=== PATIENT | male | born 1960 | race Caucasian/White ===

== ENCOUNTER 2017-05-20 16:30 | Outpatient (RCR) | payer OTHER, SELFPAY ==
--- NOTE | 2016-11-07 17:17 | HP.PTEVAL_ITS ---
Patient's Visit Information KEREN CRAWFORD is a 55 year old M referred to Physical Therapy by Out of Town Doctor CHANO HOLGUIN with a diagnosis of LUMBAR SPINE TUMOR. Date of Evaluation: 11/07/16 Physical Therapist: Yi Rogers - Visit Plan Frequency: 3x /Week Duration: 4-6 Weeks Plan: *S/P 2ND SPINE TUMOR OCTOBER 30 2016* *NO BENDING, LIFTING (> 5-10 LBS) , TWISTING. POSTURE CORRECTION/STRENGTHENING, INSTRUCTION IN APPROPRIATE BODY MECHANICS AND ACTIVITY MODIFICATIONS. DLS STARTING WITH A NEUTRAL SPINE PROGRESSING ROM OK'D BY SURGEON. BELA LE ROM, STRETCHING AND STRENGTHENING. HEP INSTRUCTION. - Subjective Subjective: PATIENT REPORTS HAVING BACK SURGERY OCTOBER 30 2016 TO REMOVE A SPINAL TUMOR. THE TUMOR WAS BENIGN. THE TUMOR WAS DIAGNOSED ABOUT 2 YEARS AGO. MRI REVEALLED THE TUMOR. THIS TUMOR WAS MINOR BUT 2 YEARS AGO THERE WAS A VERY LARGE TUMOR REMOVED. THIS ONE WAS REMOVED BECAUSE IT WAS GROWING. NO OTHER TUMORS AT THIS TIME THAT HE IS AWARE OF. 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 JUST DISCHARGED HOME FROM [facility] SATURDAY. SURGEON: ALIA CHOUDHARY. Work/ Leisure: [employer]. CURRENTLY OFF WORK. LAST WORKED OCTOBER 29 2016. TENTATIVE RETURN TO WORK SET FOR JANUARY. Disability: FMLA. Present symptoms : CURRENTLY ONLY HAVING PAIN AT THE INCISION SITE. Present since: A FEW YEARS AGO. WAS ALSO HAVING SOME DISCOMFORT IN HIS LOW BACK, RIGHT BUTTOCK AND RIGHT THIGH. NO LONGER HAVING THE RIGHT BUTTOCK TIGHTNESS BUT STILL FEELS BELA LE TIGHTNESS. Pain Scale: WORST 6/10, LEAST 2/10. Currently: 3/10. Commenced as a result of: NO APPARENT REASON. Symptoms at onset: BACK PAIN. Worse: OVER EXERSION. Better: REST. Disturbed sleep: YES. Previous history/ Previous treatment: CHRONIC LBP TREATED WITH A LOT OF GENERAL MACHINE OPERATOR. Coughing/sneezing/straining: NEGATIVE. Gait: IMPROVING SINCE SURGERY. SMOOTHING OUT. Difficulty initiating urinatin: YES. SURGEON WARNED PATIENT THIS COULD HAPPEN. Accidents: NO. Unexplained weight loss: NO. PMH: UNREMARKABLE. Recent major surgery: NONE OTHER. OTHER: HAS NOT REACHED THE POINT OF BEING ABLE TO RAISE UP ON HIS TOES SINCE THE FIRST SURGERY HOWEVER STILL IMPROVING. RIGHT FOOT DROP BEFORE FIRST SURGERY AND BELA FOOT DROP AFTER FIRST SURGERY. LIVES ALONE. OTHER: PHYSICIAN ORDER SAYS PLEASE ADDRESS ENDURANCE, STRENGTHENING, ROM AND BALANCE. - Objective PATIENT REQUESTED TO LIE DOWN DURING SUBJECTIVE PORTION OF THE EVALUATION. Sitting Posture: POOR. Standing Posture: INCREASED KYPHOSIS, FORWARD HEAD AND ROUNDED SHOULDERS. DECREASED LORDOSIS. Other Observations: INDEP GAIT WITHOUT ASSISTIVE DEVICE BUT WITH DECREASED CADANCE AND SHORT BELA STRIDE LENGTH. Motor deficit: BELA LE STRENGTH IS GROSSLY 4/5 WITH MMT EXCEPT PLANTAR FLEXION WHICH IS GRADED 3+/5. Sensory deficit: BELA LE LIGHT TOUCH SENSATION APPEARS TO BE INTACT AND SYMMETRICAL. ROM deficit: LE'S WFL. Reflexes: UNABLE TO ELICIT BELA LE DTR'S. Dural Signs: NT. Lumbar mvmt loss: NT. Core strength: POOR. Palpation: INCISION IS BANDAGED AND NOT OBSERVED BUT PATIENT REPORTS SEEING IT TODAY AND DENIES ANY SIGNS OF INFECTION. - Goals Goal 1:: DECREASE C/O LBP AND BELA LE TIGHTNESS. Goal Time Frame: 4-6 Weeks Goal 2:: IMPROVE BENDING, LIFTING, TWISTING, SITTING, STANDING, WALKING, ADL, WORK AND SLEEP FUNCTION. Goal Time Frame: 4-6 Weeks Goal 3:: INSTRUCT IN PROPHYLAXIS Goal Time Frame: 4-6 Weeks - Rehabilitation Potential Rehabilitation Potential: Good - Anticipated Interventions Patient/Client Instruction: Educate patient on: Condition, Plan of Care, Risk Factors, Benefits of Fitness Program For the Purpose of:: To improve self management Therapeutic Exercise to Include: Strength training, Endurance training, Body mechanics, Postural training, Gait and locomotor training, Dynamic Lumbar Stabilization Comment: PATIENT MAY BENEFIT FROM VIDEO ANALYSIS TO BETTER ISOLATE WEAKNESS'S. For the Purpose of:: To improve ability of physical actions for home/community/ work/leisure Thank you for the opportunity to evaluate your patient. For Medicare and Medicare HMO plans, please review the plan of care and approve it. It will need to be FAXED BACK to us at [phone] for Medicare purposes. Please let me know if there are questions or concerns regarding this plan of care. Physician Signature: Date:
--- NOTE | 2016-11-30 16:45 | HP.PTREVAL_ITS ---
Out of Town Doctor, CHANO HOLGUIN It has been my pleasure to treat KEREN CRAWFORD over the last 11 visits for LUMBAR SPINE TUMOR. Please see the progress note below for an update on the physical therapy plan of care! Subjective: PATIENT REPORTS HE IS ABOUT 30 OR 40% BETTER OVER-ALL AT THIS POINT AND THINKS HE HAS SEEN ABOUT A 10% IMPROVEMENT IN HIS PAIN AND STRENGTH SINCE STARTING PT. PRESENTS WITH RIGHT GROIN AND BACK/HIP PAIN TODAY 2-06/15. PATIENT REPORTS THAT GENERALLY HE FEELS BETTER AFTER PT SESSIONS. Dec FOLLOW UP WITH SURGEON PLANNED. Objective/Function: RECOMMEND INCORPORATING TRIAL OF AQUATIC THERAPY ONE TIME A WEEK FOR CONTINUATION OF CORE STRENGTHENING AND USE OF BOUYANCY FOR GASTROC AND SOLEUS STRENGTHEING. ALSO FOR HYDROSTATIC WATER PRESSURE FOR PAIN CONTROL WITH CORE STABILITY FOCUS. Plan Plan: *S/P 2ND SPINE TUMOR OCTOBER 30 2016*. POSTURE CORRECTION/STRENGTHENING, INSTRUCTION IN APPROPRIATE BODY MECHANICS AND ACTIVITY MODIFICATIONS. DLS STARTING WITH A NEUTRAL SPINE PROGRESSING ROM TOLERATED. BELA LE ROM, STRETCHING AND STRENGTHENING. HEP INSTRUCTION. SEE ASSESSMENT ABOVE. PATIENT IS AGREEABLE. [ End ] Goals Goal 1:: DECREASE C/O LBP AND BELA LE TIGHTNESS. Goal Time Frame: 4-6 Weeks Goal Progress: Progressing Goal 2:: IMPROVE BENDING, LIFTING, TWISTING, SITTING, STANDING, WALKING, ADL, WORK AND SLEEP FUNCTION. Goal Time Frame: 4-6 Weeks Goal Progress: Progressing Goal 3:: INSTRUCT IN PROPHYLAXIS Goal Time Frame: 4-6 Weeks Goal Progress: Progressing Anticipated Interventions Patient/Client Instruction: Educate patient on: Condition, Plan of Care, Risk Factors, Benefits of Fitness Program For the Purpose of:: To improve self management Therapeutic Exercise to Include: Strength training, Endurance training, Body mechanics, Postural training, Gait and locomotor training, Dynamic Lumbar Stabilization Comment: PATIENT MAY BENEFIT FROM VIDEO ANALYSIS TO BETTER ISOLATE WEAKNESS'S. For the Purpose of:: To improve ability of physical actions for home/community/ work/leisure Please do not hesitate to contact me at [phone] by phone or Fax: if you have questions or concerns regarding this new plan of care! Sincerely, Yi Rogers
--- NOTE | 2016-12-31 15:43 | HP.PTREVAL_ITS ---
Out of Town Doctor, CHANO HOLGUIN It has been my pleasure to treat KEREN CRAWFORD over the last 20 visits for LUMBAR SPINE TUMOR. Please see the progress note below for an update on the physical therapy plan of care! 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 PATIENT REPORTS HE IS DEFINATELY STRONGER AND MORE STABLE. EVERYTIME I WALK OUT OF HERE I FEEL BETTER. IF 100% IS BEING ABLE TO PLAY SOFTBALL AND RUN LIKE HE DID 3-4 YEARS AGO THEN HE FEELS ABOUT 60-65% BETTER. PATIENT REPORTS HE FEELS THAT THE MUSCLE TARGETING HE HAS BEEN DOING IN HERE WITH US IS HELPING AND HE WANTS MORE GUIDANCE. Objective/Function: PROGRESSING. SLOW PROGRESS WITH PLANTAR FLEXION IMPROVEMENT. RECOMMENDED CONTINUED SKILLED PT FOR SPECIFIC EX PRESCRIPTION AND PROGRESSION. Plan Plan: [facility] NEXT APPOINTMENT ON [place]. CONT PT 1-3 TIMES A WEEK X 18 VISITS PER ORIGINAL POC. PATIENT IS AGREEABLE. Goals Goal 1:: DECREASE C/O LBP AND BELA LE TIGHTNESS. Goal Time Frame: 4-6 Weeks Goal Progress: Progressing Goal 2:: IMPROVE BENDING, LIFTING, TWISTING, SITTING, STANDING, WALKING, ADL, WORK AND SLEEP FUNCTION. Goal Time Frame: 4-6 Weeks Goal Progress: Progressing Goal 3:: INSTRUCT IN PROPHYLAXIS Goal Time Frame: 4-6 Weeks Goal Progress: Progressing Anticipated Interventions Patient/Client Instruction: Educate patient on: Condition, Plan of Care, Risk Factors, Benefits of Fitness Program For the Purpose of:: To improve self management Therapeutic Exercise to Include: Strength training, Endurance training, Body mechanics, Postural training, Gait and locomotor training, Dynamic Lumbar Stabilization Comment: PATIENT MAY BENEFIT FROM VIDEO ANALYSIS TO BETTER ISOLATE WEAKNESS'S. For the Purpose of:: To improve ability of physical actions for home/community/ work/leisure Please do not hesitate to contact me at [phone] by phone or Fax: if you have questions or concerns regarding this new plan of care! Sincerely, Yi Rogers
--- NOTE | 2017-05-23 11:42 | HP.PTDCSUM ---
HP - PT D/C Summary It has been my pleasure to treat KEREN CRAWFORD under orders from Out of [facility] Doctor, CHANO HOLGUIN for the diagnosis of LUMBAR SPINE TUMOR for a total of 47 visit(s). Discharge Date: 05/20/17 Please see the following information for a summary of their discharge status. - Subjective Subjective: Pt. reports I am having some tightness, but not too bad. Pt. reports he believes he is able to manage on his own at this point in time. Pt. repoorts no pain currently. - Pain LOW BACK Pain Intensity (Out of 10): 0 RLE Pain Intensity (Out of 10): 0 - Overall Improvement % Improvement: 85 - Objective Objective/Function: Pt. is progressing as expected. Pt. reports overall looser, but is now able to self manage at this point in time. - Goals Goal 1:: DECREASE C/O LBP AND BEAL LE TIGHTNESS. Goal Progress: Goal Met Goal 2:: IMPROVE BENDING, LIFTING, TWISTING, SITTING, STANDING, WALKING, ADL, WORK AND SLEEP FUNCTION. Goal Progress: Goal Met Goal 3:: INSTRUCT IN PROPHYLAXIS Goal Progress: Goal Met - Plan Plan: Pt. has progressed to a point where he feels comfortable completing exercises on his own at this point. He reports overall decreased symptoms of tightness in low back and BLEs. He is independent with his current HEP and is pleased on where he is at. Pt. to continue with HEP and stretching at this point in time. - D/C Information Discharge Comments: Pt. progressed initially with core strengthening and body mechanics. He was have some BLE tightness and has progressed with stretching and dry needling. He is currently at a point where he feels comfortable with his HEP and stretching at home. Pt. will be DC from PT at this current in time. If there are questions or concerns regarding this patient's physical therapy, please feel free to call me at [phone]. Thank you for the referral of this patient. Sincerely, Ori Linares
== END 2017-05-20 19:00 | disposition home or self-care (01) ==
LOC: PT 16:30
PROVIDERS: Family Provider Family Medicine; PCP Family Medicine
DX: D49.2 Neoplasm of unspecified behavior of bone, soft tissue, and skin (principal)
CPT/HCPCS: 97110; 97113; 97140; 97163; 97530

== ENCOUNTER → 2017-06-11 16:29 | Outpatient (CLI) | payer OTHER, SELFPAY | PROVIDERS: Family Provider Family Medicine; PCP Family Medicine; Visit Provider Family Medicine | DX: E29.1 Testicular hypofunction (principal) | CPT/HCPCS: 36415; 84403 ==

== ENCOUNTER → 2017-09-19 07:31 | Outpatient (CLI) | payer OTHER, SELFPAY ==
[2017-09-19 10:33] LABS: Anion Gap 7 (5-15); BUN 15 mg/dL (7-18); Calcium,Total 8.7 mg/dL (8.5-10.1); Chloride 106 mmol/L (98-107); Cholesterol 156 mg/dL (200); Creatinine, Serum 1.07 mg/dL (0.70-1.30); EST Glomerular Filtration Rate 76 mL/min (>60); Est Glom Filt Rate - Afr Amer 92 mL/min (>60); Glucose 84 mg/dL (74-106); High Density Lipoprotein 46 mg/dL; PSA,Total - Annual Screen 0.38 ng/mL (0.00-4.00); Potassium 4.1 mmol/L (3.5-5.1); Sodium Level 142 mmol/L (136-145); Triglycerides 95 mg/dL; Very Low Density Lipoprotein 19 mg/dL (5-40)
== END ==
PROVIDERS: Family Provider Family Medicine; PCP Family Medicine; Visit Provider Family Medicine
DX: Z00.00 Encounter for general adult medical examination without abnormal findings (principal)
CPT/HCPCS: 36415; 80048; 80061; 84153; G0103

== ENCOUNTER → 2018-12-09 07:32 | Outpatient (CLI) | payer OTHER, SELFPAY ==
[2018-12-09 10:47] LABS: Anion Gap 7 (5-15); BUN 11 mg/dL (7-18); BUN/Creat Ratio 11.1 RATIO (10-20); Calcium,Total 8.8 mg/dL (8.5-10.1); Chloride 108 mmol/L (98-107); Cholesterol 137 mg/dL (200); Creatinine, Serum 0.99 mg/dL (0.70-1.30); EST Glomerular Filtration Rate 82 mL/min (>60); Est Glom Filt Rate - Afr Amer 100 mL/min (>60); Glucose 93 mg/dL (74-106); High Density Lipoprotein 47 mg/dL; Sodium Level 143 mmol/L (136-145); Triglycerides 87 mg/dL; Very Low Density Lipoprotein 17 mg/dL (5-40)
== END ==
PROVIDERS: Family Provider Family Medicine; PCP Family Medicine; Referring Provider Family Medicine; Visit Provider Family Medicine
DX: Z00.00 Encounter for general adult medical examination without abnormal findings (principal); E29.1 Testicular hypofunction
CPT/HCPCS: 36415; 80048; 80061; 84153; 84403; G0103

== ENCOUNTER → 2019-12-21 13:41 | Outpatient (CLI) | payer OTHER, SELFPAY ==
[2019-12-21 13:45] LABS: Lyme Ab Screen Interpretation REF LAB
[2019-12-21 15:51] LABS: Erythrocyte Sedimentation Rate 13 mm/hr (0-20)
[2019-12-23 19:17] LABS: ANTINUCLEAR ANTIBODIES DIRECT Negative (Negative)
[2019-12-30 05:05] LABS: Lyme Scn Total Ab w/Rflx 2.43 ISR (0.00-0.90)
[2019-12-31 20:57] LABS: Lyme IgG P18 Ab Absent (.); Lyme IgG P23 Ab Absent (.); Lyme IgG P28 Ab Absent (.); Lyme IgG P30 Ab Absent (.); Lyme IgG P39 Ab Present (.); Lyme IgG P41 Ab Present (.); Lyme IgG P45 Ab Absent (.); Lyme IgG P58 Ab Present (.); Lyme IgG P66 Ab Absent (.); Lyme IgG P93 Ab Present (.); Lyme IgM P23 Ab Present (.); Lyme IgM P39 Ab Present (.); Lyme IgM P41 Ab Present (.)
[2019-12-31 20:58] LABS: Lyme IgG WB Interpretation Negative (.); Lyme IgM WB Interpretation Positive (.)
== END ==
PROVIDERS: PCP Family Medicine; Referring Provider Family Medicine; Visit Provider Family Medicine
DX: M25.50 Pain in unspecified joint (principal)
CPT/HCPCS: 36415; 85652; 86038; 86617; 86618

== ENCOUNTER → 2020-01-06 08:39 | Outpatient (CLI) | payer OTHER, SELFPAY ==
[2020-01-06 10:33] LABS: Anion Gap 3 (5-15); BUN 14 mg/dL (7-18); BUN/Creat Ratio 14.8 RATIO (10-20); Chloride 104 mmol/L (98-107); Cholesterol 133 mg/dL (200); Creatinine, Serum 0.95 mg/dL (0.70-1.30); EST Glomerular Filtration Rate 87 mL/min (>60); Est Glom Filt Rate - Afr Amer 105 mL/min (>60); Glucose 91 mg/dL (74-106); High Density Lipoprotein 33 mg/dL; Potassium 3.8 mmol/L (3.5-5.1); Sodium Level 137 mmol/L (136-145); Thyroid Stim Hormone (TSH) 3.03 uIU/mL (0.358-3.74); Triglycerides 133 mg/dL; Very Low Density Lipoprotein 27 mg/dL (5-40)
== END ==
PROVIDERS: PCP Family Medicine; Referring Provider Family Medicine; Visit Provider Family Medicine
DX: Z00.00 Encounter for general adult medical examination without abnormal findings (principal)
CPT/HCPCS: 36415; 80048; 80061; 84403; 84443

== ENCOUNTER → 2023-05-31 | Outpatient (CLI) | payer BC, SELFPAY ==
[2023-06-01 11:09] LABS: Lyme IGG CIA Positive (Negative); Lyme IGM CIA Positive (Negative); Lyme Scn Total Ab w/Rflx Positive (Negative)
== END | disposition home or self-care (01) ==
LOC: MFPLAB 11:08
PROVIDERS: PCP Family Medicine; Visit Provider Family Medicine
DX: A69.23 Arthritis due to Lyme disease (principal)
CPT/HCPCS: 36415; 86618

== ENCOUNTER → 2023-09-17 | Outpatient (CLI) | payer BC, SELFPAY ==
[2023-09-17 16:11] LABS: Anion Gap 5 (5-15); BUN 11 mg/dL (7-18); BUN/Creat Ratio 11.3 RATIO (10-20); Calcium,Total 9.3 mg/dL (8.5-10.1); Chloride 105 mmol/L (98-107); Cholesterol 147 mg/dL (200); Creatinine, Serum 0.97 mg/dL (0.70-1.30); EST Glomerular Filtration Rate 83 mL/min (>60); Est Glom Filt Rate - Afr Amer 101 mL/min (>60); Glucose 99 mg/dL (74-106); High Density Lipoprotein 46 mg/dL; PSA,Total - Annual Screen 0.37 ng/mL (0.00-4.00); Potassium 4.2 mmol/L (3.5-5.1); Sodium Level 139 mmol/L (136-145); Triglycerides 105 mg/dL; Very Low Density Lipoprotein 21 mg/dL (5-40)
== END | disposition home or self-care (01) ==
LOC: MTLAB 13:01
PROVIDERS: PCP Family Medicine; Referring Provider Family Medicine; Visit Provider Family Medicine
DX: Z00.00 Encounter for general adult medical examination without abnormal findings (principal)
CPT/HCPCS: 36415; 80048; 80061; 84153; G0103

== ENCOUNTER → 2024-03-02 | Outpatient (CLI) | payer BC, SELFPAY ==
--- NOTE | 2024-03-02 15:35 | RAD_ITS ---
STUDY: X-RAY - RIGHT ANKLE REASON FOR EXAM: Male, 63 years old. SWELLING TECHNIQUE: 3 view(s) of the ankle. COMPARISON: None. FINDINGS: Normal visualized distal tibia and fibula. Normal medial and lateral malleoli. Normal tibiotalar articulation and ankle mortise. Normal visualized talus and calcaneus. The visualized subtalar, talonavicular, calcaneocuboid and tarsal articulations are normal. The soft tissue structures are unremarkable. RAD/Ankle min 3 Views IMPRESSION: Normal x-ray examination of the ankle. Electronically Signed: Alvin Luong MD at 12:16 EST ,
== END | disposition home or self-care (01) ==
PROVIDERS: PCP Family Medicine; Referring Provider Family Medicine; Visit Provider Family Medicine
DX: M25.473 Effusion, unspecified ankle (principal)
CPT/HCPCS: 73610